=== PATIENT | female | born 2000 | race Two or more races ===

== ENCOUNTER 2020-12-18 01:59 | Emergency (ER) | payer OTHER ==
[~2020-12-18] VITALS: Ht 160 cm; Wt 75.7 kg
[2020-12-18 03:13] LABS: ALANINE AMINOTRANSFERASE 22 U/L (12-78); ALBUMIN 3.9 g/dL (3.4-5.0); ANION GAP 6 mmol/L (5-15); BASOPHILS % (AUTO) 0 % (0-1); CALCIUM 8.5 mg/dL (8.5-10.1); CHLORIDE 107 mmol/L (98-107); CREATININE 0.55 mg/dL (0.55-1.02); EOSINOPHILS % (AUTO) 0 % (1-7); LYMPHOCYTES % (AUTO) 15 % (22-44); MEAN CORPUSCULAR HEMOGLOBIN 32.8 pg (27.0-34.8); MEAN CORPUSCULAR HGB CONC 35.2 g/dL (32.4-35.8); MEAN PLATELET VOLUME 8.1 fL (7.4-10.4); MONOCYTES % (AUTO) 3 % (2-9); NEUTROPHILS % (AUTO) 81 % (42-75); PLATELET COUNT 334 x10^3/uL (130-400); RED BLOOD COUNT 4.27 x10^6/uL (3.82-5.3)
[2020-12-18 03:18] LABS: ALKALINE PHOSPHATASE 65 U/L (45-117); BILIRUBIN,TOTAL 0.5 mg/dL (0.2-1.0); TOTAL PROTEIN 8.4 g/dL (6.4-8.2)
--- NOTE | 2020-12-18 03:26 | NUR ---
PT C/O OF SI THOUGHTS. DENIES HI. PT APPEARS TO BE INTOXICATED PT STATES SHE HAS BEEN FEELING DEPRESSED AND DOES'NT WANT TO LIVE ANYMORE. PT STATES SHE WOULD DRINK AND TAKE SLEEPING PILLS TELL SHE DIES. PT REPORTS DRINKING A LOT AND TAKING SLEEPING PILLS A COUPLE WEEKS AGO AND WAKING UP AND FEELING DISORIENTED. PT HAD EPISODE OF SELF HARM A FEW WEEKS AGO CUTTING HER LEFT LEG, VISIBLE SCARS. PT DOES HAVE INTENTION ON GOING THROUGH PLAN BUT HASN'T STARTED TO ATTEMPT IT TODAY. PT CHANGED INTO GOWN, PERSONAL BELONGINGS GATHERED AND PUT INTO LOCKERS. GARAGE DOORS SECURED.
[2020-12-18 03:27] LABS: SALICYLATE LEVEL < 1.7 mg/dL (2.8-20.0)
--- NOTE | 2020-12-18 03:39 | NUR ---
CARMELO OLDER SISTER [phone] PT STATED THAT SHE DRANK A PINT OF VODKA AND SMOKED MARIJUANA TONIGHT.
[2020-12-18 03:59] LABS: AMPHETAMINE SCREEN, URINE Negative (Negative); BARBITURATE SCREEN, URINE Negative (Negative); BENZODIAZEPINE SCREEN, URINE Negative (Negative); CANNABINOID SCREEN, URINE Positive (Negative); COCAINE SCREEN, URINE Negative (Negative); METHADONE SCREEN, URINE Negative (Negative); OPIATE SCREEN, URINE Negative (Negative)
--- NOTE | 2020-12-18 04:30 | NUR ---
PT SLEEPING IN BED. EYES CLOSED. BREATHING EVEN AND UNLABORED. SAFETY PRECAUTIONS PUT INTO PLACE. NADN. WCTM NO EMOTIONAL OR BEHAVIORAL OUTBURSTS.
--- NOTE | 2020-12-18 06:18 | NUR ---
Patient is SLEEPING comfortably in bed. EYES CLOSED. Bed in lowest, rails engaged, call light on lap. WCTM. SAFETY PRECAUTIONS PUT INTO PLACE. BREATHING EVEN AND UNLABORED. TAMAR
--- NOTE | 2020-12-18 06:51 | NUR ---
GAVE REPORT TO ZOHREH PEGUERO. TRANSFER OF CARE.
--- NOTE | 2020-12-18 07:05 | NUR ---
Report recieved form dionisio PEGUERO. PT resting in bed, safety precautions in place.
[2020-12-18 09:01] VITALS: BP 106/56
--- NOTE | 2020-12-18 10:39 | NUR ---
Jared reaves NP at bedside for evaluation.
--- NOTE | 2020-12-18 10:44 | NUR ---
Pt cleared for dc, angel returned from [facility].
--- NOTE | 2020-12-18 10:52 | NUR ---
DC instructions reviewed
== END 2020-12-18 10:53 | disposition home or self-care (01) ==
LOC: ED 08:15
DX: F15.24 Other stimulant dependence with stimulant-induced mood disorder (principal); F10.120 Alcohol abuse with intoxication, uncomplicated; F41.9 Anxiety disorder, unspecified; R94.31 Abnormal electrocardiogram [ECG] [EKG]; Y90.0 Blood alcohol level of less than 20 mg/100 ml
CPT/HCPCS: 36415; 80053; 80299; 80307; 80320; 80329; 84703; 85025; 93005; 99284; G0480